=== PATIENT | female | born 1975 | race Two or more races ===

== ENCOUNTER 2016-12-11 19:22 | Emergency (ER) | payer SELFPAY ==
--- NOTE | 2016-12-11 20:45 | ER Document Report ---
ED Medical Screen (RME) - General Stated Complaint: ABDOMIAL PAIN Notes: Patient has been having vaginal spotting for 2 weeks. Started vaginal bleeding last night and passed a large clot. unknown. Denies fever, no vomiting or diarrhea. I have greeted and performed a rapid initial assessment of this patient. A comprehensive ED assessment and evaluation of the patient, analysis of test results and completion of the medical decision making process will be conducted by additional ED providers.
[2016-12-11 21:13] LABS: ABSOLUTE BASOPHILS # (AUTO) 0.1 10^3/uL (0.0-0.2); ABSOLUTE EOSINOPHILS # (AUTO) 0.2 10^3/uL (0.0-0.6); ABSOLUTE LYMPHOCYTES (AUTO) 4.6 10^3/uL (0.5-4.7); ABSOLUTE NEUT (AUTO) 8.8 10^3/uL (1.7-8.2); BASOPHILS % (AUTO) 0.7 % (0-2); EOSINOPHILS % (AUTO) 1.6 % (0-6); HEMOGLOBIN 14.4 g/dL (12.0-15.5); HGB HCT DIFFERENCE 2.2; LYMPHOCYTES % (AUTO) 31.2 % (13-45); MEAN CORPUSCULAR HEMOGLOBIN 30.4 pg (27.0-33.4); MEAN CORPUSCULAR VOLUME 87 fl (80-97); MONOCYTES % (AUTO) 6.8 % (3-13); RED BLOOD COUNT 4.72 10^6/uL (3.72-5.28); SEGMENTED NEUTROPHILS % (AUTO) 59.7 % (42-78); WHITE BLOOD COUNT 14.8 10^3/uL (4.0-10.5)
[2016-12-11 21:31] LABS: ALANINE AMINOTRANSFERASE 48 U/L (9-52); ALBUMIN 4.6 g/dL (3.5-5.0); ALKALINE PHOSPHATASE 91 U/L (38-126); ANION GAP 15 (5-19); ASPARTATE AMINO TRANSFERASE 28 U/L (14-36); BILIRUBIN,DIRECT 0.2 mg/dL (0.0-0.4); BILIRUBIN,TOTAL 0.5 mg/dL (0.2-1.3); BLOOD UREA NITROGEN 11 mg/dL (7-20); CALCIUM 9.8 mg/dL (8.4-10.2); CARBON DIOXIDE 24 mmol/L (22-30); CHLORIDE 103 mmol/L (98-107); CREATININE RESULT 0.55 mg/dL (0.52-1.25); GLUCOSE 87 mg/dL (75-110); POTASSIUM 4.1 mmol/L (3.6-5.0); SODIUM 142.2 mmol/L (137-145); TOTAL PROTEIN 7.5 g/dL (6.3-8.2)
[2016-12-11 22:22] LABS: APPEARANCE,URINE CLOUDY; BILIRUBIN,URINE NEGATIVE (NEGATIVE); GLUCOSE, URINE NEGATIVE (NEGATIVE); KETONES,URINE NEGATIVE (NEGATIVE); LEUKOCYTE ESTERASE,URINE TRACE (NEGATIVE); NITRITE,URINE NEGATIVE (NEGATIVE); PROTEIN,URINE 30 mg/dL (NEGATIVE); URINE SPECIFIC GRAVITY 1.008; UROBILINOGEN,URINE NEGATIVE mg/dL (<2.0)
--- NOTE | 2016-12-12 01:05 | ER Document Report ---
ED GI/ - General Mode of Arrival: Ambulatory Information source: Patient, Relative - son TRAVEL OUTSIDE OF THE [place] IN LAST 30 DAYS: No - HPI Patient complains to provider of: Abdominal pain, Vaginal bleeding Onset: This morning Location: Vaginal Associated symptoms: Other - see HPI <PAULINE ARGUELLO - Last Filed: 12/12/16 04:54> <CELIARONALD JANE - Last Filed: 12/12/16 05:53> - General Chief Complaint: Vaginal Bleeding Stated Complaint: ABDOMIAL PAIN Notes: 41 year old Indonesian speaking female presents to the ED accompanied by her son who is helping to explain the patient's complaints. Patient is complaining of abdominal pain that started last night. Patient also states that she has been having episodes of vaginal bleeding since last week. Early this morning the patient passed a bloody clot. (PAULINE ARGUELLO) - Related Data Allergies/Adverse Reactions: No Known Allergies Allergy (Unverified 12/12/16 01:06) Past Medical History - General Information source: Patient, Relative - son - Social History Smoking Status: Unknown if Ever Smoked Family History: Reviewed & Not Pertinent Renal/ Medical History: Denies: Hx Peritoneal Dialysis <PAULINE ARGUELLO - Last Filed: 12/12/16 04:54> Review of Systems - Review of Systems Constitutional: No symptoms reported EENT: No symptoms reported Cardiovascular: No symptoms reported Respiratory: No symptoms reported Gastrointestinal: See HPI, Abdominal pain Genitourinary: No symptoms reported Female Genitourinary: See HPI, Vaginal bleeding Musculoskeletal: No symptoms reported Skin: No symptoms reported Hematologic/Lymphatic: No symptoms reported Neurological/Psychological: No symptoms reported -: Yes All other systems reviewed and negative <PAULINE ARGUELLO - Last Filed: 12/12/16 04:54> Physical Exam - Vital signs Interpretation: Normal - General General appearance: Appears well, Alert - HEENT Head: Normocephalic, Atraumatic Eyes: Normal Pupils: PERRL - Respiratory Respiratory status: No respiratory distress Chest status: Nontender Breath sounds: Normal Chest palpation: Normal - Cardiovascular Rhythm: Regular Heart sounds: Normal auscultation Murmur: No - Abdominal Inspection: Normal Distension: No distension Bowel sounds: Normal Tenderness: Tender - Mild right pelvic tenderness to palpation Organomegaly: No organomegaly - Genitourinary Vaginal bleeding: Mild - Back Back: Normal, Nontender - Extremities General upper extremity: Normal inspection, Nontender, Normal color, Normal ROM , Normal temperature General lower extremity: Normal inspection, Nontender, Normal color, Normal ROM , Normal temperature, Normal weight bearing. No: Gus's sign - Neurological Neuro grossly intact: Yes Cognition: Normal Orientation: AAOx4 [place] Coma Scale Eye Opening: Spontaneous [place] Coma Scale Verbal: Oriented [place] Coma Scale Motor: Obeys Commands [place] Coma Scale Total: 15 Speech: Normal Motor strength normal: LUE, RUE, LLE, RLE Sensory: Normal - Psychological Associated symptoms: Normal affect, Normal mood - Skin Skin Temperature: Warm Skin Moisture: Dry Skin Color: Normal <RONALD YANG - Last Filed: 12/12/16 05:53> - Vital signs Vitals: Temp Pulse Resp BP Pulse Ox 98.2 F 68 18 133/79 H 98 12/12/16 02:49 12/12/16 02:49 12/12/16 02:49 12/12/16 02:49 12/12/16 02:49 Course - Laboratory Result Diagrams: 12/11/16 21:00 12/11/16 21:00 <PAULINE ARGUELLO - Last Filed: 12/12/16 04:54> - Laboratory Result Diagrams: 12/11/16 21:00 12/11/16 21:00 - Diagnostic Test Radiology reviewed: Reports reviewed <RONALD YANG - Last Filed: 12/12/16 05:53> - Re-evaluation Re-evalutation: 12/12/16 Repeat Quant is decreasing. Patient with miscarriage most likely. Discussed with Dr. Pepe. Patient will follow-up in office. Patient has brought with her possible products that will be sent for pathology. Patient is asking me which she needs to due to you're . I've explained to her that this is a better question for DIRECTOR OF QUANTITATIVE RESEARCH. Rhogram not indicated. Blood work otherwise within normal limits. Patient is stable. No evidence for ectopic at this time. Patient understands and agrees with plan. Stable for discharge. (RONALD YANG) - Vital Signs Vital signs: Temp Pulse Resp BP Pulse Ox 98.2 F 69 16 138/82 H 99 12/12/16 05:00 12/12/16 05:00 12/12/16 05:00 12/12/16 05:00 12/12/16 05:00 - Laboratory Laboratory results interpreted by me: 12/11/16 12/11/16 12/11/16 21:00 21:00 21:00 WBC 14.8 H Absolute Neutrophils 8.8 H Beta HCG, Quant 621.02 H Urine Protein 30 H Urine Blood LARGE H Ur Leukocyte Esterase TRACE H 12/12/16 03:50 WBC Absolute Neutrophils Beta HCG, Quant 360.48 H Urine Protein Urine Blood Ur Leukocyte Esterase Discharge <PAULINE ARGUELLO - Last Filed: 12/12/16 04:54> <RONALD YANG - Last Filed: 12/12/16 05:53> - Discharge Clinical Impression: Pelvic pain, Spontaneous Condition: Stable Disposition: HOME, SELF-CARE Instructions: Miscarriage ([facility]) Additional Instructions: Please follow-up with women's health regarding your possible miscarriage within 48-72 hours. Forms: Follow-Up Laboratory Testing Referrals: [facility] [Provider Group] - 12/14/16 Print Language: Indonesian Scribe Attestation: 12/12/16 05:53 I personally performed the services described in the documentation, reviewed and edited the documentation which was dictated to the scribe in my presence, and it accurately records my words and actions. (RONALD YANG) Scribe Documentation - Scribe Written by Brettibe:: Ann Lares, 12/12/2016 [id number] acting as scribe for :: Celia <PAULINE ARGUELLO - Last Filed: 12/12/16 04:54>
[2016-12-12 05:24] VITALS: BP 138/82
== END 2016-12-12 05:24 | disposition home or self-care (01) ==
LOC: ER 19:22
DX: O03.9 Complete or unspecified spontaneous abortion without complication (principal); R10.2 Pelvic and perineal pain; R10.9 Unspecified abdominal pain; N93.9 Abnormal uterine and vaginal bleeding, unspecified
CPT/HCPCS: 36415; 76817; 80053; 81001; 84702; 85025; 86900; 86901; 88305; 99284